=== PATIENT | female | born 1960 | race American Indian/Alaskan Native ===

== ENCOUNTER → 2017-08-24 | Outpatient (CLI) | payer OTHER | LOC: CIMAGING 10:27 | PROVIDERS: ATTEND Family Medicine | DX: K76.0 Fatty (change of) liver, not elsewhere classified (principal) | CPT/HCPCS: 76705-PO ==

== ENCOUNTER → 2017-10-12 | Outpatient (CLI) | payer OTHER ==
[~2017-10-12] MED LIST: IOPAMIDOL (ISOVUE-370) 150 ML BTL IV ONE; METOPROLOL TARTRATE 5 MG/5 ML INJ ONE
== END ==
LOC: FIMAGING 13:14
PROVIDERS: ATTEND Internal Medicine Cardiovascular Disease
DX: I49.3 Ventricular premature depolarization (principal); R00.2 Palpitations; R07.89 Other chest pain; R94.39 Abnormal result of other cardiovascular function study
CPT/HCPCS: 75574; Q9967

== ENCOUNTER → 2017-12-11 | Outpatient (CLI) | payer OTHER | LOC: FIMAGING 12:24 | PROVIDERS: ATTEND Family Medicine | DX: R05 Cough (principal) ==

== ENCOUNTER 2018-04-29 08:27 | Day surgery (SDC) | payer OTHER ==
[2018-04-29] MEDS ORDERED: LIDOCAINE 1% 300 MG/30 ML SDV SC ONE (08:30)
--- NOTE | 2018-04-29 09:05 | PDHPUP ---
History & Physical Update H&P update statement: This history and physical update is based on an assessment of the patient which was completed after admission or registration (within 24 hours), but prior to the surgery/procedure. H&P update: H&P reviewed & patient examined, no change in patient's condition since H&P completed (Reviewed Dr. Fernando's office note dated 04/22/2018)
--- NOTE | 2018-04-29 10:44 | CPIP ---
[f rep st] INVASIVE CARDIAC PROCEDURE DATE OF PROCEDURE: 04/29/2018 INDICATIONS: Cryptogenic TIA. Evaluate for occult atrial fibrillation. Palpitations. COMPLICATIONS: None. DESCRIPTION OF PROCEDURE: Informed consent was obtained. Time-out was performed. The patient was p repped and draped in sterile fashion. 1% lidocaine was used for local anesthesia in the left paraste rnal region. Using standard technique, a [employer] LINQ device was inserted and the incision was steve sed with 2 gerald. Sterile dressing applied. CONCLUSIONS: Successful LINQ implantation device serial #[id number]. Follow up in clinic as scheduled for staple removal and device interrogation. The patient tolerated the procedure well and is currently in stable condition. /[id number]/MODL
== END 2018-04-29 10:15 | disposition home or self-care (01) ==
LOC: FCATH 08:27
PROVIDERS: ATTEND Internal Medicine Cardiovascular Disease
PROC: 0JH632Z Insertion of Monitoring Device into Chest Subcutaneous Tissue and Fascia, Percutaneous Approach (ICD-10-PCS; principal; 2018-04-29)
DX: R00.2 Palpitations (principal); I10 Essential (primary) hypertension
CPT/HCPCS: C1764

== ENCOUNTER → 2018-09-26 | Outpatient (CLI) | payer OTHER | LOC: CIMAGING 12:20 | PROVIDERS: ATTEND Family Medicine | DX: R07.81 Pleurodynia (principal); M54.5 Low back pain | CPT/HCPCS: 71101-PO ==

== ENCOUNTER 2019-02-20 08:26 | Inpatient (IN) | payer OTHER | END 2019-02-20 14:40 | disposition home or self-care (01) | LOC: F1N 08:26 → F3E 09:24 ==